=== PATIENT | male | born 1980 ===

== ENCOUNTER 2021-04-27 01:28 | Emergency (ER) | payer MEDICAID ==
[~2021-04-27] VITALS: Ht 175.3 cm; Wt 68.2 kg
[2021-04-27 01:38] VITALS: BP 115/65
== END 2021-04-27 04:41 | disposition left against medical advice (07) ==
LOC: ER 01:29
DX: H57.12 Ocular pain, left eye (principal); Z53.21 Procedure and treatment not carried out due to patient leaving prior to being seen by health care provider